=== PATIENT | female | born 1970 | race Two or more races ===

== ENCOUNTER 2017-05-05 12:51 | Emergency (ER) | payer MEDICAID ==
[2017-05-05 13:03] VITALS: RESP 16
[2017-05-05] MEDS ORDERED: TDAP ADULT 0.5 ML INJ (BOOSTRIX) IM ONE (13:08)
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
[2017-05-05] MEDS ORDERED: OXYCODONE/APAP 5/325 TAB PO ONE (14:01)
[2017-05-05] MEDS ORDERED: AMOXICILLIN/CLAVULANATE POT 875/125 MG TAB PO ONE (14:01)
[2017-05-05 15:06] VITALS: BP 154/78; PULSE 50; TEMP 97.9; O2SAT 96
== END 2017-05-05 15:04 | disposition home or self-care (01) ==
PROC: 0HQEXZZ Repair Left Lower Arm Skin, External Approach (ICD-10-PCS; principal; 2017-05-05)
DX: S51.812A Laceration without foreign body of left forearm, initial encounter (principal); S50.02XA Contusion of left elbow, initial encounter; S43.402A Unspecified sprain of left shoulder joint, initial encounter; Z23 Encounter for immunization; W01.0XXA Fall on same level from slipping, tripping and stumbling without subsequent striking against object, initial encounter
CPT/HCPCS: A4565

== ENCOUNTER 2017-05-08 09:35 | Emergency (ER) | payer MEDICAID ==
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
[2017-05-08] MEDS ORDERED: LET GEL TOPICAL 1 EA SYR TP ONE ×2 (11:05→11:11)
[2017-05-08] MEDS ORDERED: traMADol 50 MG TAB PO ONE (12:03)
[2017-05-08] MEDS ORDERED: traMADol 50 MG TAB ONE (12:04)
[2017-05-08 12:07] VITALS: BP 145/90; PULSE 72; RESP 18; TEMP 98.4; O2SAT 95
== END 2017-05-08 12:43 | disposition home or self-care (01) ==
DX: S59.902D Unspecified injury of left elbow, subsequent encounter (principal); X58.XXXD Exposure to other specified factors, subsequent encounter

== ENCOUNTER → 2017-05-25 | Outpatient (CLI) | payer MEDICAID | LOC: FIMAGING 09:41 | PROVIDERS: ATTEND Orthopaedic Surgery | DX: S51.812A Laceration without foreign body of left forearm, initial encounter (principal); M79.81 Nontraumatic hematoma of soft tissue ==